=== PATIENT | male | born 1970 | race Caucasian/White ===

== ENCOUNTER 2019-12-31 14:50 | Emergency (ER) | payer SELFPAY ==
[2019-12-31 14:58] VITALS: BP 135/86; PULSE 73; RESP 18; TEMP 36.6; O2SAT 100
--- NOTE | 2019-12-31 15:17 | ED.URI ---
HPI - URI/Sore Throat General Chief Complaint: Upper Respiratory Infection Stated Complaint: sore in back of throat Time Seen by Provider: 12/31/19 15:17 Source: patient and RN notes reviewed Mode of arrival: ambulatory Limitations: no limitations History of Present Illness HPI Narrative: 49 year old male who presents to doctors hospital care with complaints of awakening this morning with sore area to the back of his throat, denies any oral injury. Patient states soreness and swelling noted to the back of his throat with red area noted to left of his uvula with uvula enlarged also.Patient denies any shortness of breath or any inability to swallow. Patient denies any known fevers chills or sweats, denies any recent sinus drainage, cough or other ill symptoms. Patient does have history of rheumatoid arthritis but takes only occasional Ibuprofen for his discomfort. Patient denies any unusual fatigue, lymphadenopathy, or increase myalgia. MD elicited complaint: sore throat Pertinent past history: other (Rheumatoid arthritis) Onset (ago): day(s) (1) Consistency: constant Severity: moderate Pain scale (0-10): 4 Able to tolerate fluids by mouth: Yes Exacerbating factors: swallowing Relieving factors: nothing Associated symptoms: denies other symptoms Treatments prior to arrival: none Related Data Allergies Allergy/AdvReac Type Severity Reaction Status Date / Time No Known Allergies Allergy Verified 08/09/19 09:54 Review of Systems Review of Systems: Narrative: CONSTITUTIONAL: Denies fever, chills, or sweats. EYES: Denies visual changes, redness, or discharge. ENT: Denies rhinorrhea, congestion,positive sore throat with redness swelling to uvula, no otalgia. CARDIOVASCULAR: Denies chest pain, palpitations, or edema. RESPIRATORY: Denies cough or dyspnea. GASTROINTESTINAL: Denies abdominal pain, nausea, vomiting, or diarrhea. GENITOURINARY: Denies dysuria or hematuria. SKIN: Denies rash or itching. MUSCULOSKELETAL: Denies acuteback pain, joint pains, or myalgia. NEUROLOGIC: Denies headache, numbness, or weakness. PSYCHIATRIC: Denies anxiety or depression. All systems reviewed & are unremarkable except as noted in HPI and below PMFSH Past Medical History Medical History (Updated 01/01/20 @ 16:38 by Andreia De La Torre NP) Rheumatoid arthritis Social History Social History (Updated 01/01/20 @ 16:32 by Andreia De La Torre NP) Smoking status: Never smoker Second hand tobacco smoke exposure: Yes Alcohol intake: current Living arrangements: with family Gender identity (if verbalized by the patient): Male Comments At time of signature, agree with nursing past medical, surgical, social history. There is no relevant family history pertinent to the presenting complaint Exam Narrative: Exam Narrative: GENERAL: Well-appearing, well-nourished, and in no acute distress. HEAD: Normocephalic, atraumatic. EYES: PERRLA and EOMI. ENT: Nares clear, no rhinorrhea or epistaxis. Mucous membranes moist.TM's normal with good light reflex, throat red with uvula swollen and bright red region on left of uvula, no exudates to tonsils, mild tonsil redness. NECK: Supple.no lymphadenopathy CHEST: Clear to auscultation. No respiratory distress.SAO2 100% on room air HEART: Regular rate and rhythm. No murmur heard. Normal peripheral pulses. ABDOMEN: Soft, nontender, nondistended, normal active bowel sounds. EXTREMITIES: Normal range of motion. No edema. SKIN: Warm, dry, no rash. NEURO: No focal deficits. Alert and oriented x3. Course Vital Signs Vital signs: Vital Signs Temperature 36.6 C 12/31/19 14:58 Pulse Rate 73 12/31/19 14:58 Respiratory Rate 18 12/31/19 14:58 Blood Pressure 135/86 12/31/19 14:58 Pulse Oximetry 100 12/31/19 14:58 Temperature 36.6 C 12/31/19 14:58 Pulse Rate 73 12/31/19 14:58 Respiratory Rate 18 12/31/19 14:58 Blood Pressure 135/86 12/31/19 14:58 Pulse Oximetry 100 12/31/19 14:58 MDM - URI/
== END 2019-12-31 15:56 | disposition home or self-care (01) ==
PROVIDERS: Emergency Provider Registered Nurse; PCP Family Medicine
DX: J02.9 Acute pharyngitis, unspecified (principal); J39.8 Other specified diseases of upper respiratory tract; M06.9 Rheumatoid arthritis, unspecified
CPT/HCPCS: 87081; 87880; 99213; G0463

== ENCOUNTER → 2024-09-09 15:27 | Outpatient (REF) | payer OTHER, SELFPAY ==
--- OUTSIDE RECORDS SUMMARY | 2024-09-09 17:54 | XMS_ITS | Encounter Summary ---
Author Organization [employer] Address 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
--- OUTSIDE RECORDS SUMMARY | 2024-09-09 17:54 | XMS_ITS | Encounter Summary ---
Author Organization [employer] Address [address] [place] [address] Care Team Providers Care Stain Maker Name Role Phone Fahad Cardona MD Primary Care Provider Emmanuel vick Encounter Details Date Type Department Care Team (Latest Contact Info) Description 06/06/2003 Outpatient Historical [facility] OTHER INVESTIGATION AND TESTING (Primary Dx) Social History Tobacco Use Types Packs/Day Years Used Date Smoking Tobacco: Never Assessed Sex and Gender Information Value Date Recorded Sex Assigned at Not on file Legal Sex Male 3:42 AM CVT TECH Gender Identity Not on file Sexual Orientation Not on file documented as of this encounter Plan of Treatment Not on file documented as of this encounter Visit Diagnoses Diagnosis Other investigation and testing for procreative management- Primary documented in this encounter Care Teams Stain Maker Relationship Specialty Start Date End Date Fahad Cardona MD PCP - General 12/24/07 08/12/21 documented as of this encounter
--- OUTSIDE RECORDS SUMMARY | 2024-09-09 17:54 | XMS_ITS | Clinical Summary ---
Author Organization [facility] Address [id number] [place] [address] [place] [address] Care Team Providers Care Run Boat Operator Name Role Phone Unavailable Primary Care Provider Unavailabl e Allergies No known active allergies Medications Pantoprazole 40 mg Oral SuDR Active ATOMOXETINE HCL (STRATTERA) 80 mg Oral CapIndications:A DD (attention deficit disorder) Take 1 Cap by mouth daily. 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, other specified site 12/25/2007 Immunizations Immunization Administration Dates Next Due (ADACEL/BOOSTRIX)(10 YR UP) TDAP VACCINE, 0.5ML, IM 12/25/2007 Family History Medical History Relation Name Comments Breast Cancer Father Stroke Mother 62 Healthy Sister Relation Name Status Comments Father Alive Mother 62 Alive Sister Social History Tobacco Use Types Packs/Day Years Used Date Smoking Tobacco: Never Sex and Gender Information Value Date Recorded Sex Assigned at Not on file Legal Sex Male 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 Gender Identity Not on file Sexual Orientation Not on file Last Filed Vital Signs Vital Sign Reading Time Taken Comments Blood Pressure 128/80 01/31/2008 11:09 AM CDT Pulse 63 01/31/2008 11:09 AM CDT Temperature 36.3 C (97.4 F) 01/31/2008 11:09 AM CDT Respiratory Rate - - Oxygen Saturation - - Inhaled Oxygen Concentration - - Weight 75.8 kg (167 lb) 01/31/2008 11:09 AM CDT Height - - Body Mass Index - - Plan of Treatment Health Maintenance Due Date Last Done Comments HEPATITIS B VACCINES (1 of 3 - 19+ 3-dose series) 09/12/1987 COLORECTAL SCREENING 2013 Colorectal Cancer Screening 2013 FIT-DNA Q 3 years 2013 FIT/FOBT Q 1 year 2013 Flex Sig/CT Colonography Q 5 years 2013 DTAP/TDAP/TD VACCINES (2 - T d or Tdap) 12/24/2017 12/25/2007 ZOSTER VACCINE (1 of 2) 2018 INFLUENZA VACCINE (#1) 2024 PNEUMOCOCCAL VACCINE 0-49 YEARS Aged Out No longer eligible based on patient's age to complete this topic
--- OUTSIDE RECORDS SUMMARY | 2024-09-09 17:54 | XMS_ITS | Encounter Summary ---
Author Organization [facility] Address [address] [place] [address] Care Team Providers Care Shank Inspector Name Role Phone Fahad Cardona MD Primary Care Provider Emmanuel vick Encounter Details Date Type Department Care Team (Late st Contact Info) Description 01/02/2008 Outpatient Historical [facility], [address] Diana Triplett MD [address] [place] [address] Social History Tobacco Use Types Packs/Day Years Used Date Smoking Tobacco: Never Sex and Gender Information Value Date Recorded Sex Assigned at Not on file Legal Sex Male 3:42 AM TEXTILE KNITTER Gender Identity Not on file Sexual Orientation Not on file documented as of this encounter Plan of Treatment Not on file documented as of this encounter Procedures Procedure Name Priority Date/Time Associated Diagnosis Comments PATHOLOGY Routine 01/02/2008 3:09 PM CDT documented in this encounter Results * PATHOLOGY (01/02/2008 3:09 PM CDT) FINAL REPORT [address] [address] Patient: JIM YO : 1970 Procedure Date: 01/02/2008 Accession Date: 01/02/2008 Case No: [id number] Ordering Dr: DIANA TRIPLETT Case types AW, BW, FW, NW and SH are performed by [facility] [place], [place], [place] SURGICAL PATHOLOGY & NON-GYNECOLOGIC CYTOPATHOLOGY REPORT DIAGNOSIS STOMACH, BIOPSY: - VERY MILD CHRONIC INFLAMMATION. ESOPHAGUS, MID, BIOPSY: - VERY MILD REACTIVE CHANGES. Specimen Description: (1) Gastric; (2) mid esophagus. Operative Procedure: EGD. Patient Information/History/Di agnosis: (1) Rule out H. pylori infection. (2) Rule out eosinophilic esophagitis. Gross: Received are two containers labeled Srinath, Jim N. Received in the first container additionally labeled gastric are two morgan tissue fragments, 0.2 and 0.3 cm in greatest dimension, which are submitted in block A1. Received in the second container labeled mid esophagus is a 0.1-cm greatest dimension white tissue fragment, which is submitted in block B1. [facility] 01.02.2008 05:44 pm Microscopic: The slides are labeled [id number] and Srinath, Jim. The stomach biopsy consists of body and antral mucosa showing very mild chronic inflammation in the lamina propria. The antral tissue also displays mild reactive foveolar hyperplasia. No active inflammation or mucosal ulceration is seen. There is no evidence of intestinal metaplasia, atrophy, or malignancy. An immunohistochemical stain for Helicobacter pylori is negative. The mid esophageal biopsy consists of esophageal squamous mucosa showing mild congestion of the vascular papillae and scant intraepithelial lymphocytic inflammation. The features appear reactive. Tissue infiltration by eosinophils is not present. Note on use of immunocytochemistry reagents: This test was developed and its performance characteristic determined by [facility], Department of Laboratory Medicine. It has not been cleared or approved by the U.S. Food and Drug Administration. The FDA has determined that such clearance or approval is not necessary. The test is used for clinical purpose. It should not be regarded as investigational or for research. This laboratory is certified to perform high complexity clinical testing. GL/TMZ 01.03.2008 11:13 am Staging Form: No. ELECTRONIC SIGNATURE FOR ESPINOZA MCLEOD M.D.- 01/03/08 02:14 pm INTERFACE SYSTEM 01/02/2008 3:09 PM CDT us Diana Triplett MD PATHOLOGY/CYTOLOGY ORDERABLE S Final Result INTERFACE SYSTEM Refer to clinic/hospital department documented in this encounter Visit Diagnoses Not on filedocumented in this encounter Care Teams Shank Inspector Relationship Specialty Start Date End Date Fahad Cardona MD PCP - General 12/24/07 08/12/21 documented as of this encounter
--- OUTSIDE RECORDS SUMMARY | 2024-09-09 17:54 | XMS_ITS | Encounter Summary ---
Author Organization [employer] Address [address] [place] [address] Care Team Providers Care County Demonstrator Name Role Phone Fahad Cardona MD Primary Care Provider Emmanuel vick Encounter Details Date Type Department Care Team (Late st Contact Info) Description 04/22/2004 Outpatient Historical [facility] [address] [address] ANY Cooper, Colby Ratliff MD [address] [place] [address] Social History Tobacco Use Types Packs/Day Years Used Date Smoking Tobacco: Never Assessed Sex and Gender Information Value Date Recorded Sex Assigned at Not on file Legal Sex Male 3:42 AM DIRECTOR OF SPA AND GUEST EXPERIENCE Gender Identity Not on file Sexual Orientation Not on file documented as of this encounter Plan of Treatment Not on file documented as of this encounter Visit Diagnoses Not on filedocumented in this encounter Care Teams County Demonstrator Relationship Specialty Start Date End Date Fahad Cardona MD PCP - General 12/24/07 08/12/21 documented as of this encounter
--- OUTSIDE RECORDS SUMMARY | 2024-09-09 17:54 | XMS_ITS | Encounter Summary ---
Author Organization [employer] Address [address] [place] [address] Care Team Providers Care Fender Mechanic Name Role Phone Fahad Cardona MD Primary Care Provider Emmanuel vick Encounter Details Date Type Department Care Team (Late st Contact Info) Description 02/26/2004 Outpatient Historical [facility] [address] DR[address] ANY Cooper, Colby Ratliff MD [address] [place] [address] Social History Tobacco Use Types Packs/Day Years Used Date Smoking Tobacco: Never Assessed Sex and Gender Information Value Date Recorded Sex Assigned at Not on file Legal Sex Male 3:42 AM SITE MEDICAL DIRECTOR Gender Identity Not on file Sexual Orientation Not on file documented as of this encounter Plan of Treatment Not on file documented as of this encounter Visit Diagnoses Not on filedocumented in this encounter Care Teams Fender Mechanic Relationship Specialty Start Date End Date Fahad Cardona MD PCP - General 12/24/07 08/12/21 documented as of this encounter
--- OUTSIDE RECORDS SUMMARY | 2024-09-09 17:54 | XMS_ITS | Encounter Summary ---
Author Organization [employer] Address [address] [place] [address] Care Team Providers Care Bunch Trimmer Mold Name Role Phone Fahad Cardona MD Primary Care Provider Emmanuel vick Encounter Details Date Type Department Care Team (Late st Contact Info) Description 12/25/2003 Outpatient Historical [facility] [address] [address] ANY Cooper, Colby Ratliff MD [address] [place] [address] Social History Tobacco Use Types Packs/Day Years Used Date Smoking Tobacco: Never Assessed Sex and Gender Information Value Date Recorded Sex Assigned at Not on file Legal Sex Male 3:42 AM EPIC SPECIALIST Gender Identity Not on file Sexual Orientation Not on file documented as of this encounter Plan of Treatment Not on file documented as of this encounter Visit Diagnoses Not on filedocumented in this encounter Care Teams Bunch Trimmer Mold Relationship Specialty Start Date End Date Fahad Cardona MD PCP - General 12/24/07 08/12/21 documented as of this encounter
--- OUTSIDE RECORDS SUMMARY | 2024-09-09 17:54 | XMS_ITS | Encounter Summary ---
Author Organization [employer] Address [address] [place] [address] Care Team Providers Care Inspector Wire Rope Name Role Phone Fahad Cardona MD Primary Care Provider Emmanuel vick Encounter Details Date Type Department Care Team (Late st Contact Info) Description 03/02/2004 Outpatient Historical [facility] [address] [address] ANY Cooper, Colby Ratliff MD [address] [place] [address] Social History Tobacco Use Types Packs/Day Years Used Date Smoking Tobacco: Never Assessed Sex and Gender Information Value Date Recorded Sex Assigned at Not on file Legal Sex Male 3:42 AM ETCHER HAND Gender Identity Not on file Sexual Orientation Not on file documented as of this encounter Plan of Treatment Not on file documented as of this encounter Visit Diagnoses Not on filedocumented in this encounter Care Teams Inspector Wire Rope Relationship Specialty Start Date End Date Fahad Cardona MD PCP - General 12/24/07 08/12/21 documented as of this encounter
--- OUTSIDE RECORDS SUMMARY | 2024-09-09 17:54 | XMS_ITS | Encounter Summary ---
Author Organization [employer] Address [address] [place] [address] Care Team Providers Care Manager Of Business Name Role Phone Fahad Cardona MD Primary Care Provider Emmanuel vick Encounter Details Date Type Department Care Team (Late st Contact Info) Description 02/09/2004 Outpatient Historical [facility] [address] [address] ANY Cooper, Colby Ratliff MD [address] [place] [address] Social History Tobacco Use Types Packs/Day Years Used Date Smoking Tobacco: Never Assessed Sex and Gender Information Value Date Recorded Sex Assigned at Not on file Legal Sex Male 3:42 AM HEALTH INFORMATION TECH Gender Identity Not on file Sexual Orientation Not on file documented as of this encounter Plan of Treatment Not on file documented as of this encounter Visit Diagnoses Not on filedocumented in this encounter Care Teams Manager Of Business Relationship Specialty Start Date End Date Fahad Cardona MD PCP - General 12/24/07 08/12/21 documented as of this encounter
--- OUTSIDE RECORDS SUMMARY | 2024-09-09 17:54 | XMS_ITS | Encounter Summary ---
Author Organization [employer] Address 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 Gender Identity Not on file Sexual Orientation Not on file documented as of this encounter Plan of Treatment Not on file documented as of this encounter Procedures Procedure Name Priority Date/Time Associated Diagnosis Comments PATHOLOGY Routine 01/31/2008 5:00 PM CDT documented in this encounter Results * PATHOLOGY (01/31/2008 5:00 PM CDT) FINAL REPORT [address] [address] Patient: JIM YO : 1970 Procedure Date: 01/31/2008 Accession Date: 02/01/2008 Case No: [id number] Ordering Dr: ANNI HOANG Case types AW, BW, FW, NW and SH [place] [facility] [place] SURGICAL PATHOLOGY & NON-GYNECOLOGIC CYTOPATHOLOGY REPORT DIAGNOSIS SKIN, MID BACK, SHAVE BIOPSY: - JUNCTIONAL MELANOCYTIC NEVUS. Specimen Description: Mid back. Operative Procedure: Punch biopsy. Patient Information/Histor y/Diagnosis: 709.9, skin lesion, unspecified. Gross: Received in a single container labeled Jim Srinath, mid back is a 0.4 x 0.2 x 0.1-cm shave of morgan skin. The skin surface is remarkable for a 0.3 x 0.1-cm brown macule, which is less than 0.1 cm from the closest skin margin. The specimen is marked with blue ink and submitted entirely in cassette A1. AI/RISSA 02.01.2008 10:36 am Microscopic: The slides are labeled [id number] and Jim Yo. Histologic sections of skin from the mid back reveal a junctional melanocytic nevus. The lesion is characterized by a proliferation of melanocytes scattered at the dermoepidermal junction. There is no significant cytologic atypia of the melanocytes. GIOVANNI/ALLAN 02.04.2008 07:55 pm Staging Form: No. ELECTRONIC SIGNATURE FOR ESPINOZA MCLEOD M.D.- 02/05/08 09:14 am INTERFACE SYSTEM 01/31/2008 5:00 PM CDT us Anni Hoang MD PATHOLOGY/CYTOLOGY ORDERABLES Final Result INTERFACE SYSTEM Refer to clinic/hospital department documented in this encounter Visit Diagnoses Diagnosis Unspecified disorder of skin and subcutaneous tissue documented in this encounter Care Teams Manager Balance Relationship Specialty Start Date End Date Anni Hoang MD PCP - General 12/24/07 08/12/21 documented as of this encounter
--- OUTSIDE RECORDS SUMMARY | 2024-09-09 17:54 | XMS_ITS | Encounter Summary ---
Author Organization [employer] Address 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
--- OUTSIDE RECORDS SUMMARY | 2024-09-09 17:54 | XMS_ITS | Clinical Summary ---
Author Organization [facility] Address [address] [place] [address] Care Team Providers Care Materials Inspector Name Role Phone Gabbi Bowen MD Primary Care Provider Un available Source Comments [facility],non-owned Affiliates and Associated Physician Practices is amultiple site organization consisting of ambulatory clinics and hospital sitesin [place] and [place]. This disclosure is being madepursuant to the Care Everywhere program and may not contain all information available regarding this patient. Last updated 18.[facility] Allergies No known active allergies Medications * Be aware that medications may not be up to date on this document. Alwaysverify current medications with the patient. Medication Sig Dispensed Refills Start Date End Date Status codeine-guaifenesin (ROBITUSSIN-AC) 100-10 MG/5ML solutionIndications:UR I (upper respiratory infection) Take 5 mL by mouth every 6 hours as needed for Cough. 200 mL 0 07/11/2012 Active azithromycin (ZITHROMAX) 250 mg salena Take 1 Kit by mouth as directed. 2 tablets day 1, then 1 tablet daily for 4 days 1 Kit 0 07/11/2012 Active Active Problems Problem Noted Date Diagnosed Date NO DIAGNOSIS Immunizations Name Administration Dates Next Due TDAP (7yrs+) 07/18/2011 Family History Medical History Relation Name Comments Stroke Father multiple Arthritis - Rheumatoid Mother Breast Cancer after age 50 or unknown Mother Arthritis - Rheumatoid Sister Relation Name Status Comments Father Mother Sister Social History Tobacco Use Types Packs/Day Years Used Date Smoking Tobacco: Never Alcohol Use Standard Drinks/Week Comments Yes 12.5 (1 standard drink = 0.6 oz pure alcohol) Sex and Gender Information Value Date Recorded Sex Assigned at Not on file Gender Identity Not on file Sexual Orientation Not on file Last Filed Vital Signs Vital Sign Reading Time Taken Comments Blood Pressure 128/88 07/11/2012 10:59 AM PIPE FITTER SUPERVISOR MAINTENANCE Pulse 76 07/11/2012 10:59 AM PIPE FITTER SUPERVISOR MAINTENANCE Temperature 36.9 C (98.4 F) 07/11/2012 10:59 AM PIPE FITTER SUPERVISOR MAINTENANCE Respiratory Rate - - Oxygen Saturation - - Inhaled Oxygen Concentration - - Weight 78.9 kg (174 lb) 07/11/2012 10:59 AM PIPE FITTER SUPERVISOR MAINTENANCE Height 174 cm (5' 8.5 ) 07/11/2012 10:59 AM PIPE FITTER SUPERVISOR MAINTENANCE Body Mass Index 26.07 07/11/2012 10:59 AM PIPE FITTER SUPERVISOR MAINTENANCE Plan of Treatment Health Maintenance Due Date Last Done Comments COLOGUARD (AGES 45-75) - COL ON CA SCREENING 1968 COLON MONITORING 1968 COLONOSCOPY - COLON CA SCREENING 1968 CT COLONOGRAPHY - COLON CA SCREENING 1970 Colorectal Cancer Screening 1968 FIT - COLON CA SCREENING 1968 FLEX SIG - COLON CA SCREENING 1968 HIV SCREENING 09/12/1983 HEPATITIS C SCREENING 09/07/1986 HEPATITIS B VACCINE (1 of 3 - 19+ 3-dose series) 09/12/1987 LIPID TESTING 04/18/2016 04/18/2011 PNEUMOCOCCAL VACCINE 50+ (1 of 1 - PCV) 2018 ZOSTER VACCINE (1 of 2) 2018 DTAP/TDAP/TD VACCINES (2 - T d or Tdap) 07/18/2021 07/18/2011 COVID-19 VACCINE ( - 2023-2 5 season) 2024 INFLUENZA VACCINE (#1) 2024 DEPRESSION SCREENING 06/19/2024 HIB VACCINE Aged Out No longer eligi ble based on patient's age to complete this topic HPV VACCINE Aged Out No longer eligi ble based on patient's age to complete this topic MENINGOCOCCAL (Group B) VACC INE SHARED DECISION-MAKING Aged Out No longer eligibl e based on patient's age to complete this topic MENINGOCOCCAL GROUPS A/C/Y/W VACCINE Aged Out No longer eligible b ased on patient's age to complete this topic PNEUMOCOCCAL VACCINE Aged Out No long er eligible based on patient's age to complete this topic Procedures Procedure Name Priority Date/Time Associated Diagnosis Comments LIPID PROFILE Routine 04/18/2011 7:56 AM CDT Well adult exam from Last 3 Months or Most Recently Relevant to Health Maintenance Results * (ABNORMAL) LIPID PROFILE (04/18/2011 7:56 AM CDT) Cholesterol 176 100 - 199 mg/dL [facility] ACCOUNT BILL Triglycerides 79 0 - 149 mg/dL [facility] ACCOUNT BILL HDL Cholesterol 50 >39 mg/dL [facility] ACCOUNT BILL Comment: According to ATP-III Guidelines, HDL-C >59 mg/dL is considered a negative risk factor for CHD. VLDL Calculated 16 5 - 40 mg/dL [facility] ACCOUNT BILL LDL Calculated 110(H) 0 - 99 mg/dL [facility] ACCOUNT BILL BLOOD SPECIMEN / Unknown 04/18/2011 7:56 AM CDT 04/18/2011 6:04 PM CDT Narrative Resulting Agency Comment [facility] [address] [id number] Gabbi Bowen MD LAB - CHEMISTRY O RDERABLES [facility] ACCOUNT BILL from Last 3 Months or Most Recently Relevant to Health Maintenance Care Teams Materials Inspector Relationship Specialty Start Date End Date Gabbi Bowen MD PCP - General Family Medicine 07/18/11
== END ==
LOC: ANHLAB 15:27
PROVIDERS: Visit Provider Plastic Surgery
DX: C44.519 Basal cell carcinoma of skin of other part of trunk (principal)
CPT/HCPCS: 88305

== ENCOUNTER 2025-03-24 07:58 | Day surgery (SDC) | payer OTHER, SELFPAY ==
[2025-02-19 10:52] VITALS: BMI 27.1
[2025-03-11 10:50] VITALS: BMI 26.0
[2025-03-24 08:51] VITALS: BP 138/96; PULSE 67; RESP 18; TEMP 36.6; O2SAT 100; BMI 26.4
--- OUTSIDE RECORDS SUMMARY | 2025-03-24 08:59 | XMS_ITS | Encounter Summary ---
Author Organization [employer] Address 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 Gender Identity Not on file Sexual Orientation Not on file documented as of this encounter Plan of Treatment Not on file documented as of this encounter Procedures Procedure Name Priority Date/Time Associated Diagnosis Comments PATHOLOGY Routine 01/31/2008 5:00 PM CDT documented in this encounter Results * PATHOLOGY (01/31/2008 5:00 PM CDT) FINAL REPORT [address] [address] Patient: JIM YO : 1970 Procedure Date: 01/31/2008 Accession Date: 02/01/2008 Case No: [id number] Ordering Dr: ANNI HOANG Case types AW, BW, FW, NW and SH are performed by [facility], [place], [place] SURGICAL PATHOLOGY & NON-GYNECOLOGIC CYTOPATHOLOGY REPORT [...] 10:36 am Microscopic: The slides are labeled [id number] and Jim Yo. Histologic sections of skin [...] tissue documented in this encounter Care Teams Grad Intern Relationship Specialty Start Date End Date Anni Hoang MD PCP - General 12/24/07 08/12/21 documented as of this encounter
--- OUTSIDE RECORDS SUMMARY | 2025-03-24 08:59 | XMS_ITS | Encounter Summary ---
Author Organization [employer] Address [address] [place] [address] Care Team Providers Care Data Analysis Manager Name Role Phone Fahad Cardona MD Primary Care Provider Emmanuel vick Encounter Details Date Type Department Care Team (Late st Contact Info) Description 02/26/2004 Outpatient Historical [facility] [address] [address] 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
--- OUTSIDE RECORDS SUMMARY | 2025-03-24 08:59 | XMS_ITS | Encounter Summary ---
Author Organization [employer] Address [address] [place] [address] Care Team Providers Care Reclamation Engineer Name Role Phone Fahad Cardona MD Primary Care Provider Emmanuel vick Encounter Details Date Type Department Care Team (Late st Contact Info) Description 12/25/2003 Outpatient Historical [facility] [address] ANY Cooper, Colby Ratliff MD [address] [place] [address] Social History Tobacco Use Types Packs/Day Years Used Date Smoking Tobacco: Never Assessed Sex and Gender Information Value Date Recorded Sex Assigned at Not on file Legal Sex Male 3:42 AM HAND SEWER Gender Identity Not on file Sexual Orientation Not on file documented as of this encounter Plan of Treatment Not on file documented as of this encounter Visit Diagnoses Not on filedocumented in this encounter Care Teams Reclamation Engineer Relationship Specialty Start Date End Date Fahad Cardona MD PCP - General 12/24/07 08/12/21 documented as of this encounter
--- OUTSIDE RECORDS SUMMARY | 2025-03-24 08:59 | XMS_ITS | Encounter Summary ---
Author Organization [employer] Address [address] [place] [address] Care Team Providers Care Station Installation Supervisor Name Role Phone Fahad Cardona MD Primary Care Provider Emmanuel vick Encounter Details Date Type Department Care Team (Late st Contact Info) Description 04/22/2004 Outpatient Historical [facility] [address] [address] 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
--- OUTSIDE RECORDS SUMMARY | 2025-03-24 08:59 | XMS_ITS | Encounter Summary ---
Author Organization [facility] Address [address] [place] [address] Care Team Providers Care Slubber Machine Operator Name Role Phone Fahad Cardona MD Primary Care Provider Emmanuel vick Encounter Details Date Type Department Care Team (Late st Contact Info) Description 01/02/2008 Outpatient Historical [facility], [address] Diana Triplett MD [address] [place] [address] Social History Tobacco Use Types Packs/Day Years Used Date Smoking Tobacco: Never Sex and Gender Information Value Date Recorded Sex Assigned at Not on file Legal Sex Male 3:42 AM TOE POUNDER Gender Identity Not on file Sexual Orientation Not on file documented as of this encounter Plan of Treatment Not on file documented as of this encounter Procedures Procedure Name Priority Date/Time Associated Diagnosis Comments PATHOLOGY Routine 01/02/2008 3:09 PM CDT documented in this encounter Results * PATHOLOGY (01/02/2008 3:09 PM CDT) FINAL REPORT [address] [address] Patient: JIM YO : 1970 Procedure Date: 01/02/2008 Accession Date: 01/02/2008 Case No: [id number] Ordering Dr: DIANA TRIPLETT Case types AW, BW, FW, NW and SH are performed by [facility], [place], [place] SURGICAL PATHOLOGY & NON-GYNECOLOGIC CYTOPATHOLOGY REPORT [...] fragment, which is submitted in block B1. [facility] 01.02.2008 05:44 pm Microscopic: The slides are labeled [id number] and Srinath, Jim. The stomach biopsy consists [...] developed and its performance characteristic determined by [facility], Department of Laboratory Medicine. It has [...] on filedocumented in this encounter Care Teams Slubber Machine Operator Relationship Specialty Start Date End Date Fahad Cardona MD PCP - General 12/24/07 08/12/21 documented as of this encounter
--- OUTSIDE RECORDS SUMMARY | 2025-03-24 08:59 | XMS_ITS | Encounter Summary ---
Author Organization [employer] Address [address] [place] [address] Care Team Providers Care Hop Strainer Name Role Phone Fahad Cardona MD Primary [...] on file Legal Sex Male 3:42 AM ENVELOPE MAKER Gender Identity Not on file Sexual Orientation Not on file documented as of this encounter Plan of Treatment Not on file documented as of this encounter Visit Diagnoses Diagnosis Other investigation and testing for procreative management- Primary documented in this encounter Care Teams Hop Strainer Relationship Specialty Start Date End Date Fahad Cardona MD PCP - General 12/24/07 08/12/21 documented as of this encounter
--- OUTSIDE RECORDS SUMMARY | 2025-03-24 08:59 | XMS_ITS | Clinical Summary ---
Author Organization [facility] Address [address] [place] [address] Care Team Providers Care Federal Mediation Commissioner Name Role Phone Gabbi Bowen MD Primary Care Provider Un available Source Comments [facility],non-owned Affiliates and Associated Physician Practices is amultiple site organization consisting of ambulatory clinics and hospital sitesin [place], [place], [place] and [place]. This disclosure is being madepursuant to the Care Everywhere program and may not contain all information available regarding this patient. Last updated 18.[facility] Allergies No known active allergies Medications * Be aware that medications may not be up to date on this document. Alwaysverify current medications with the patient. codeine-guaifene sin (ROBITUSSIN-AC) 100-10 MG/5ML solutionIndicati ons:URI (upper respiratory infection) Take 5 mL by mouth every 6 hours as needed for Cough. 200 mL 0 07/11/2012 Active azithromycin (ZITHROMAX) 250 mg salena Take 1 Kit by mouth as directed. 2 tablets day 1, then 1 tablet daily for 4 days 1 Kit 0 07/11/2012 Active Active Problems Problem Noted Date Diagnosed Date NO DIAGNOSIS Immunizations Immunization Administration Dates Next Due TDAP (7yrs+) 07/18/2011 [...] at Not on file Legal Sex Male 12:08 PM RESIDENCE HALL DIRECTOR Gender Identity Not on file Sexual Orientation Not on file Occupation Industry Job Start Date Job End Date works for [employer] Not on file Not on file N ot on file Last Filed Vital Signs Vital Sign Reading Time Taken Comments Blood Pressure 128/88 07/11/2012 10:59 AM RESIDENCE HALL DIRECTOR Pulse 76 07/11/2012 10:59 AM RESIDENCE HALL DIRECTOR Temperature 36.9 C (98.4 F) 07/11/2012 10:59 AM RESIDENCE HALL DIRECTOR Respiratory Rate - - Oxygen Saturation - - Inhaled Oxygen Concentration - - Weight 78.9 kg (174 lb) 07/11/2012 10:59 AM RESIDENCE HALL DIRECTOR Height 174 cm (5' 8.5) 07/11/2012 10:59 AM RESIDENCE HALL DIRECTOR Body Mass Index 26.07 07/11/2012 10:59 AM RESIDENCE HALL DIRECTOR Plan of Treatment Health Maintenance Due Date [...] - T d or Tdap) 07/18/2021 07/18/2011 DEPRESSION SCREENING 06/19/2024 COVID-19 VACCINE (1 - 2023-2 5 season) 2025 INFLUENZA VACCINE (#1) 2025 HIB VACCINE Aged Out No longer eligi [...] PM CDT Narrative Resulting Agency Comment [facility] [place] [address] [id number] Gabbi Bowen MD LAB - CHEMISTRY ORDERABLE S Final Result [facility] ACCOUNT BILL [address] [place] [address] from Last 3 Months or Most Recently Relevant to Health Maintenance Insurance [facility] SELF PAY NO INSURANCE Member Subscriber Plan / Payer (Ef fective for All Dates) Name:Jim Yo Member ID:Not on file Relation to Subscriber:Not on file Name:JIM YO Subscriber ID:Not on file (Home) Address: [address] [place] [id number] Payer ID:Not on file Group ID:Not on file Type:Self Pay Address: [facility] Care Teams Federal Mediation Commissioner Relationship Specialty Start Date End Date Gabbi Bowen MD PCP - General Family Medicine 07/18/11
--- OUTSIDE RECORDS SUMMARY | 2025-03-24 08:59 | XMS_ITS | Encounter Summary ---
Author Organization [employer] Address [address] [place] [address] Care Team Providers Care Machine Tracer Name Role Phone Fahad Cardona MD Primary Care Provider Emmanuel vick Encounter Details Date Type Department Care Team (Late st Contact Info) Description 03/02/2004 Outpatient Historical [facility] DR[facility] 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
--- OUTSIDE RECORDS SUMMARY | 2025-03-24 08:59 | XMS_ITS | Clinical Summary ---
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
--- OUTSIDE RECORDS SUMMARY | 2025-03-24 08:59 | XMS_ITS | Encounter Summary ---
Author Organization [employer] Address 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
--- OUTSIDE RECORDS SUMMARY | 2025-03-24 08:59 | XMS_ITS | Encounter Summary ---
Author Organization [employer] Address [address] [place] [address] Care Team Providers Care Ict Account Manager Name Role Phone Fahad Cardona MD Primary Care Provider Emmanuel vick Encounter Details Date Type Department Care Team (Late st Contact Info) Description 02/09/2004 Outpatient [address] [facility] [address] [address] 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
--- OUTSIDE RECORDS SUMMARY | 2025-03-24 08:59 | XMS_ITS | Encounter Summary ---
Author Organization [employer] Address 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
[2025-03-24] MEDS: LACTATED RINGERS 1,000 ML 150 ML IV CONT (09:03)
--- NOTE | 2025-03-24 09:08 | WPDANESEPPF ---
Anes - Initial Pre Proc Eval Procedure: Operation Date: 03/24/25 10:00 Proposed Procedures p Diagnostic Colonoscopy - Ulises Geller MD Date/Time: 03/24/25 09:08 Surgeon: Ulises Geller MD Pre Op Diagnosis: Other fecal abnormalities Patient Data Age: 54 Gender: M Height: 1.75 m Weight: 81.1 kg Last Vital Signs Temp 97.8 F 03/24/25 08:51 Pulse 67 03/24/25 08:51 Resp 18 03/24/25 08:51 BP 138/96 H 03/24/25 08:51 Pulse Ox 100 03/24/25 08:51 O2 Del Method Room Air 03/24/25 08:51 Allergies Allergy/AdvReac Type Severity Reaction Status Date / Time No Known Allergies Allergy Verified 03/24/25 08:42 Home Medications ?Medication ?Instructions ?Recorded ?Confirmed ?Type xhqmzhep-srbncvrl-jolgk acid 400 1 tablet PO DAILY 09/02/21 03/24/25 History mcg-vit K 20 mcg-lycop 300 mcg tablet (Men's Multivitamin) simvastatin 20 mg tablet 20 mg PO DAILY #90 tabs 10/09/24 03/24/25 Rx Patient hx anesthesia problems: none Family hx anesthesia problems: none Results Review: All pre-operative results and documents have been reviewed as part of the pre-operative evaluation. REPLACED BY [facility] Past Medical History Medical History Colon cancer screening (~2018) Cologuard negative HLD (hyperlipidemia) Rheumatoid arthritis Social History Social History Smoking status: Never smoker Second hand tobacco smoke exposure: Yes Alcohol intake: current Drinks per week: 21 Alcohol use details: 3 OR 4 A DAY Substance use: current Substance use type: marijuana Other substance usage details: 2 0R 3 A WEEK Lack of Transportation: No Lack of Food: Never True Current Housing: I Have Housing Concerned About Future Housing: No Difficulty Paying Gas/Electric Bills: No Difficulty Paying for Meds: No Currently Unemployed: No Education: Bachelor's Degree Difficulty w/ Childcare or Family Care: No Living arrangements: alone Occupation/Education: occupation Gender identity (if verbalized by the patient): Male Spiritual care concerns: No Agree to blood products: Yes Anes - Eval Final PreProcedure Day of Procedure 03/24/25 09:08 Heart: regular rate and rhythm Lungs: clear to auscultation Airway: Mallampati scale class III Neurological: alert and oriented Last oral intake: >/= 8 hours ASA classification: II Anesthetic plan: proceed Anesthesia type and monitoring: monitored anesthesia care Results Review: All pre-operative results and documents have been reviewed as part of the pre-operative evaluation. Informed Consent: The patient's anesthetic plan and its attendant risks and benefits were discussed with the patient/family/POA. Questions were solicited and answers provided to the satisfaction of the patient/family/POA.
--- NOTE | 2025-03-24 09:28 | PM.IMHP ---
H&P: HPI History of Present Illness Date/Time: 03/24/25 09:28 Chief Complaint: Positive Cologuard Narrative: this patient found to have a Cologuard positive test. He has never had a colonoscopy. No family history of colorectal cancer. Review of Systems Review of Systems: All systems reviewed & are unremarkable except as noted in HPI and below PMFSH Past Medical History Medical History Colon cancer screening (~2018) Cologuard negative HLD (hyperlipidemia) Rheumatoid arthritis Social History Social History Smoking status: Never smoker Second hand tobacco smoke exposure: Yes Alcohol intake: current Drinks per week: 21 Alcohol use details: 3 OR 4 A DAY Substance use: current Substance use type: marijuana Other substance usage details: 2 0R 3 A WEEK Lack of Transportation: No Lack of Food: Never True Current Housing: I Have Housing Concerned About Future Housing: No Difficulty Paying Gas/Electric Bills: No Difficulty Paying for Meds: No Currently Unemployed: No Education: Bachelor's Degree Difficulty w/ Childcare or Family Care: No Living arrangements: alone Occupation/Education: occupation Gender identity (if verbalized by the patient): Male Spiritual care concerns: No Agree to blood products: Yes Meds Home Medications and Allergies Home Medications ?Medication ?Instructions ?Recorded ?Confirmed ?Type picrphvc-jkuntjop-zujxx acid 400 1 tablet PO DAILY 09/02/21 03/24/25 History mcg-vit K 20 mcg-lycop 300 mcg tablet (Men's Multivitamin) simvastatin 20 mg tablet 20 mg PO DAILY #90 tabs 10/09/24 03/24/25 Rx Allergies Allergy/AdvReac Type Severity Reaction Status Date / Time No Known Allergies Allergy Verified 03/24/25 08:42 Vital Signs Vital Signs - 24 hr 03/24/25 08:51 Temperature 97.8 F Pulse Rate 67 Respiratory Rate 18 Blood Pressure 138/96 H Pulse Oximetry 100 Oxygen Delivery Room Air Exam Const: General: cooperative and healthy appearing Resp: Effort & Inspection: normal respiratory effort and able to speak in complete sentences Auscultation: clear to auscultation bilaterally Cardio: Rate: regular rate Rhythm: regular rhythm GI: Inspection: normal to inspection GI Palp: No No hepatosplenomegaly present Auscultation: normal bowel sounds Rectal Exam: deferred Skin: General skin exam: normal color Psych: Appearance: grossly normal Mental Status: mental status grossly normal Assessment and Plan Assessment and plan (1) Positive colorectal cancer screening using Cologuard test: Code(s): R19.5 - Other fecal abnormalities Status: Acute Assessment and Plan: The patient is deemed a good candidate for the procedure. Consent signed. Will proceed.
--- NOTE | 2025-03-24 09:36 | WPDANESPN ---
Anes - Prog Note Post-Op Date/Time: 03/24/25 09:36 Vital Signs: Last Vital Signs Temp 97.8 F 03/24/25 08:51 Pulse 67 03/24/25 08:51 Resp 18 03/24/25 08:51 BP 138/96 H 03/24/25 08:51 Pulse Ox 100 03/24/25 08:51 O2 Del Method Room Air 03/24/25 08:51 Pain Score (VAS): no Patient Feedback: Patient satisfied with anesthetic care.
[2025-03-24] MEDS: EPINEPHrine HCL INJ 1 MG/ML AMPUL 0.4 MG XX (09:49)
[2025-03-24] MEDS: SIMETHICONE ORAL SUSPENSION 20 MG/0.3 ML 30 ML BOTTLE 0.6 ML IRRIGATION (09:58)
[2025-03-24 10:14] VITALS: BP 121/94; PULSE 76; RESP 18; O2SAT 97
[2025-03-24 10:24] VITALS: BP 132/99; PULSE 73; RESP 16; O2SAT 100
[2025-03-24 10:34] VITALS: BP 144/98; PULSE 66; RESP 20; O2SAT 100
== END 2025-03-24 10:43 | disposition home or self-care (01) ==
PROVIDERS: PCP Family Medicine; Referring Provider Student in an Organized Health Care Education/Training Program; Visit Provider Internal Medicine Gastroenterology
PROC: 0DJD8ZZ Inspection of Lower Intestinal Tract, Via Natural or Artificial Opening Endoscopic (ICD-10-PCS; CPT 45378; principal; 2025-03-24 10:00)
DX: Z12.11 Encounter for screening for malignant neoplasm of colon (principal); R19.5 Other fecal abnormalities; D12.2 Benign neoplasm of ascending colon; D12.5 Benign neoplasm of sigmoid colon; K57.30 Diverticulosis of large intestine without perforation or abscess without bleeding; K64.8 Other hemorrhoids
CPT/HCPCS: 45381; 45385

== ENCOUNTER 2025-03-24 11:09 | Outpatient (NON) | payer OTHER, SELFPAY ==
--- NOTE | 2025-03-24 | S_PTH ---
PATIENT: Jim Yo LOC: ANAB #:[id number] AGE/SX: 54/M ROOM: RE03/24/[address]: Ulises Geller MD : 1970 BED: DIS: 03/24/2025 SPEC #: [id number] RECD: 03/25/25 11:36 STATUS: KIMBERLY REQ #: [id number] MARLON: 03/24/25 00:[address]: Ulises Geller DEPT: [facility] Surgical RECD BY: Monika Oneil ENTERED: 03/25/25 11:37 SP TYPE: Surgical OTHR DR: Nan TellezMD Tissues: A - Colon Polypectomy B - Colon Polypectomy C - Colon Polypectomy Procedures: Hematoxylin and Eosin Stain Gross and Microscopic Level 4
--- OUTSIDE RECORDS SUMMARY | 2025-03-25 12:22 | XMS_ITS | Clinical Summary ---
Author Organization [facility] Address [id number] [place] [address] [place] [address] Care Team Providers Care Senior Air Director Name Role Phone Unavailable Primary Care Provider [...] on file Legal Sex Male 3:42 AM COLOR SPECIALIST Gender Identity Not on file Sexual [...]
--- OUTSIDE RECORDS SUMMARY | 2025-03-25 12:22 | XMS_ITS | Encounter Summary ---
Author Organization [facility] Address [address] [place] [address] Care Team Providers Care School Bus Driver/Custodian Name Role Phone Fahad Cardona MD Primary Care Provider Emmanuel vick Encounter Details Date Type Department Care Team (Late st Contact Info) Description 03/02/2004 Outpatient [address] [facility] [address] [address] 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
--- OUTSIDE RECORDS SUMMARY | 2025-03-25 12:22 | XMS_ITS | Encounter Summary ---
Author Organization [employer] Address [address] [place] [address] Care Team Providers Care Systems Software Designer Name Role Phone Fahad Cardona MD Primary Care Provider Emmanuel vick Encounter Details Date Type Department Care Team (Late st Contact Info) Description 02/09/2004 Outpatient Historical [facility] [address] [address] 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
--- OUTSIDE RECORDS SUMMARY | 2025-03-25 12:22 | XMS_ITS | Encounter Summary ---
Author Organization [facility] Address [address] [place] [address] Care Team Providers Care Green Material Value Added Assessor Name Role Phone Fahad Cardona MD Primary Care Provider Emmanuel vick Encounter Details Date Type Department Care Team (Late st Contact Info) Description 04/22/2004 Outpatient Historical [facility] [address] 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
--- OUTSIDE RECORDS SUMMARY | 2025-03-25 12:22 | XMS_ITS | Encounter Summary ---
Author Organization [facility] Address [address] [place] [address] Care Team Providers Care Outbound Sales Agent Name Role Phone Fahad Cardona MD Primary Care Provider Emmanuel vick Encounter Details Date Type Department Care Team (Late st Contact Info) Description 02/26/2004 Outpatient Historical [facility] [address] 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
--- OUTSIDE RECORDS SUMMARY | 2025-03-25 12:22 | XMS_ITS | Clinical Summary ---
Author Organization [facility] [employer] Address [address] [place] [address] Care Team Providers Care Chemist Name Role Phone Gabbi Bowen MD Primary Care Provider Un available Source Comments [facility],non-owned Affiliates and Associated Physician Practices is amultiple site organization consisting of ambulatory clinics and hospital sitesin [place], [place], [place] and [place]. This disclosure is being madepursuant to the Care Everywhere program and may not contain all information available regarding this patient. Last updated 18.[employer] Allergies No known active allergies Medications * [...] on file Legal Sex Male 12:08 PM CHIEF WHARFINGER Gender Identity Not on file Sexual Orientation Not on file Occupation Industry Job Start Date Job End Date works for [employer] Not on file Not on file N ot on file Last Filed Vital Signs Vital Sign Reading Time Taken Comments Blood Pressure 128/88 07/11/2012 10:59 AM CHIEF WHARFINGER Pulse 76 07/11/2012 10:59 AM CHIEF WHARFINGER Temperature 36.9 C (98.4 F) 07/11/2012 10:59 AM CHIEF WHARFINGER Respiratory Rate - - Oxygen Saturation - - Inhaled Oxygen Concentration - - Weight 78.9 kg (174 lb) 07/11/2012 10:59 AM CHIEF WHARFINGER Height 174 cm (5' 8.5) 07/11/2012 10:59 AM CHIEF WHARFINGER Body Mass Index 26.07 07/11/2012 10:59 AM CHIEF WHARFINGER Plan of Treatment Health Maintenance Due Date [...] PM CDT Narrative Resulting Agency Comment [facility] [address] [id number] Gabbi Bowen MD LAB - CHEMISTRY ORDERABLE S Final Result [facility] ACCOUNT BILL [address] [place] [address] from Last 3 Months or Most Recently Relevant to Health Maintenance Insurance [facility] SELF PAY NO INSURANCE Member Subscriber Plan / Payer (Ef fective for All Dates) Name:Jim Yo Member ID:Not on file Relation to Subscriber:Not on file Name:JIM YO Subscriber ID:Not on file (Home) Address: [address] [place] [id number] Payer ID:Not on file Group ID:Not on file Type:Self Pay Address: [facility] Care Teams Chemist Relationship Specialty Start Date End Date Gabbi Bowen MD PCP - General Family Medicine 07/18/11
--- OUTSIDE RECORDS SUMMARY | 2025-03-25 12:23 | XMS_ITS | Encounter Summary ---
Author Organization [employer] Address [address] [place] [address] Care Team Providers Care Hospital Cna Name Role Phone Fahad Cardona MD Primary [...] on file Legal Sex Male 3:42 AM LAMP DECORATOR Gender Identity Not on file Sexual Orientation Not on file documented as of this encounter Plan of Treatment Not on file documented as of this encounter Visit Diagnoses Diagnosis Other investigation and testing for procreative management- Primary documented in this encounter Care Teams Hospital Cna Relationship Specialty Start Date End Date Fahad Cardona MD PCP - General 12/24/07 08/12/21 documented as of this encounter
--- OUTSIDE RECORDS SUMMARY | 2025-03-25 12:23 | XMS_ITS | Encounter Summary ---
Author Organization [facility] Address [address] [place] [address] Care Team Providers Care Pressure Sealer And Tester Name Role Phone Fahad Cardona MD Primary Care Provider Emmanuel vick Encounter Details Date Type Department Care Team (Late st Contact Info) Description 01/02/2008 Outpatient Historical [facility], [address] Diana Triplett MD [address] [place] [address] Social History Tobacco Use Types Packs/Day Years Used Date Smoking Tobacco: Never Sex and Gender Information Value Date Recorded Sex Assigned at Not on file Legal Sex Male 3:42 AM ORDNANCE ARTIFICER Gender Identity Not on file Sexual Orientation Not on file documented as of this encounter Plan of Treatment Not on file documented as of this encounter Procedures Procedure Name Priority Date/Time Associated Diagnosis Comments PATHOLOGY Routine 01/02/2008 3:09 PM CDT documented in this encounter Results * PATHOLOGY (01/02/2008 3:09 PM CDT) FINAL REPORT [address] [address] Patient: JIM YO : 1970 Procedure Date: 01/02/2008 Accession Date: 01/02/2008 Case No: [id number] Ordering Dr: DIANA TRIPLETT Case types AW, BW, FW, NW and SH are performed by [facility] [place], [place], [place] SURGICAL PATHOLOGY & NON-GYNECOLOGIC CYTOPATHOLOGY REPORT [...] fragment, which is submitted in block B1. [facility] 01.02.2008 05:44 pm Microscopic: The slides are labeled [id number] and Srinath, Jim. The stomach biopsy consists [...] developed and its performance characteristic determined by [facility], Department of Laboratory Medicine. It has [...] on filedocumented in this encounter Care Teams Pressure Sealer And Tester Relationship Specialty Start Date End Date Fahad Cardona MD PCP - General 12/24/07 08/12/21 documented as of this encounter
--- OUTSIDE RECORDS SUMMARY | 2025-03-25 12:23 | XMS_ITS | Encounter Summary ---
Author Organization [facility] Address [address] [place] [address] Care Team Providers Care Injection Molding Engineer Name Role Phone Anni Hoang MD Primary [...] on file Legal Sex Male 3:42 AM EMERGENCY SERVICES PROFESSIONAL Gender Identity Not on file Sexual Orientation Not on file documented as of this encounter Plan of Treatment Not on file documented as of this encounter Procedures Procedure Name Priority Date/Time Associated Diagnosis Comments PATHOLOGY Routine 01/31/2008 5:00 PM CDT documented in this encounter Results * PATHOLOGY (01/31/2008 5:00 PM CDT) FINAL REPORT [address] [address] Patient: JIM YO : 1970 Procedure Date: 01/31/2008 Accession Date: 02/01/2008 Case No: [id number] Ordering Dr: ANNI HOANG Case types AW, BW, FW, NW and SH are performed by [facility] [place], [place], [place] SURGICAL PATHOLOGY & NON-GYNECOLOGIC CYTOPATHOLOGY REPORT [...] 10:36 am Microscopic: The slides are labeled [id number] and Jim Yo. Histologic sections of skin [...] tissue documented in this encounter Care Teams Injection Molding Engineer Relationship Specialty Start Date End Date Anni Hoang MD PCP - General 12/24/07 08/12/21 documented as of this encounter
--- OUTSIDE RECORDS SUMMARY | 2025-03-25 12:23 | XMS_ITS | Encounter Summary ---
Author Organization [employer] Address [address] [place] [address] Care Team Providers Care Access Services Representative Name Role Phone Fahad Cardona MD Primary Care Provider Emmanuel vick Encounter Details Date Type Department Care Team (Latest Contact Info) Description 12/10/2003 Outpatient Historical [facility] Colby Cooper MD [address] [place], [place] [id number] SCROTAL VARICES (Primary Dx) Social History Tobacco Use Types Packs/Day Years Used Date Smoking Tobacco: Never Assessed Sex and Gender Information Value Date Recorded Sex Assigned at Not on file Legal Sex Male 3:42 AM ERP ENGINEER Gender Identity Not on file Sexual Orientation Not on file documented as of this encounter Plan of Treatment Not on file documented as of this encounter Visit Diagnoses Diagnosis Scrotal varices- Primary documented in this encounter Care Teams Access Services Representative Relationship Specialty Start Date End Date Fahad Cardona MD PCP - General 12/24/07 08/12/21 documented as of this encounter
--- OUTSIDE RECORDS SUMMARY | 2025-03-25 12:23 | XMS_ITS | Encounter Summary ---
Author Organization [employer] Address 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
--- OUTSIDE RECORDS SUMMARY | 2025-03-25 12:23 | XMS_ITS | Encounter Summary ---
Author Organization [employer] Address [address] [place] [address] Care Team Providers Care Optical Fabricator Name Role Phone Fahad Cardona MD Primary Care Provider Emmanuel vick Encounter Details Date Type Department Care Team (Late st Contact Info) Description 12/25/2003 Outpatient Historical [facility] [address] [address] ANY Cooper, Colby Ratliff MD [address] [place] [address] Social History Tobacco Use Types Packs/Day Years Used Date Smoking Tobacco: Never Assessed Sex and Gender Information Value Date Recorded Sex Assigned at Not on file Legal Sex Male 3:42 AM TOP TRIMMER Gender Identity Not on file Sexual Orientation Not on file documented as of this encounter Plan of Treatment Not on file documented as of this encounter Visit Diagnoses Not on filedocumented in this encounter Care Teams Optical Fabricator Relationship Specialty Start Date End Date Fahad Cardona MD PCP - General 12/24/07 08/12/21 documented as of this encounter
== END 2025-03-24 11:10 | disposition home or self-care (01) ==
LOC: ANHLAB 03-25 11:10
PROVIDERS: PCP Family Medicine; Visit Provider Internal Medicine Gastroenterology
DX: D12.2 Benign neoplasm of ascending colon (principal); D12.5 Benign neoplasm of sigmoid colon; R19.5 Other fecal abnormalities
CPT/HCPCS: 88305